=== PATIENT | female | born 1995 | race Caucasian/White ===

== ENCOUNTER 2021-05-14 16:34 | Emergency (ER) | payer MEDICAID ==
[2021-05-14] MEDS ORDERED: Ondansetron 4 MG Tab.DIS PO ONE (16:35)
[2021-05-14] MEDS ORDERED: Ondansetron 4 MG Tab.DIS PO STA (17:06)
[2021-05-14] MEDS ORDERED: levETIRAcetam 500 MG Tab PO STA (17:06)
[2021-05-14] MEDS ORDERED: Acetaminophen/HYDROcodone 325-5 MG Tab PO STA (17:06)
--- NOTE | 2021-05-14 17:44 | EDM.PDOC ---
ED HPI GENERAL MEDICAL PROBLEM - General Chief Complaint: Head Injury Stated Complaint: SEIZURE Time Seen by Provider: 05/14/21 16:40 Source of Information: Reports: Patient, Family History Limitations: Reports: No Limitations - History of Present Illness INITIAL COMMENTS - FREE TEXT/NARRATIVE: Patient presented to the ED because of head injury. She has a history of seizure and missed taking her keppra 500 mg this morning. She apparently had generalized body jerking then fell and hit her head on the floor. There is brief LOC, c/o neck pain and headache. - Related Data Allergies Allergy/AdvReac Type Severity Reaction Status Date / Time Penicillins Allergy Hives Verified 05/14/21 16:52 Home Meds: Home Meds ARIPiprazole [Abilify] 40 mg PO DAILY 05/14/21 [History] FLUoxetine [PROzac] 10 mg PO DAILY 05/14/21 [History] Mirtazapine [Remeron] 45 mg PO DAILY 05/14/21 [History] levETIRAcetam [Keppra] 500 mg PO BID 05/14/21 [History] Past Medical History Neurological History: Reports: Seizure, Other (See Below) Other Neuro History: Epilepsy Psychiatric History: Reports: Bipolar Social & Family History - Family History Family Medical History: No Pertinent Family History - Tobacco Use Tobacco Use Status *Q: Current Every Day Tobacco User Years of Tobacco use: 3 Packs/Tins Daily: 1 - Caffeine Use Caffeine Use: Reports: Coffee, Soda - Recreational Drug Use Recreational Drug Use: No ED ROS GENERAL - Review of Systems Review Of Systems: See Below Constitutional: Reports: No Symptoms HEENT: Reports: No Symptoms Respiratory: Reports: No Symptoms Cardiovascular: Reports: No Symptoms Endocrine: Reports: No Symptoms GI/Abdominal: Reports: No Symptoms : Reports: No Symptoms Musculoskeletal: Reports: No Symptoms Skin: Reports: No Symptoms Neurological: Reports: Headache, Seizure Psychiatric: Reports: No Symptoms Hematologic/Lymphatic: Reports: No Symptoms Immunologic: Reports: No Symptoms ED EXAM, HEAD INJURY - Physical Exam Exam: See Below Exam Limited By: No Limitations General Appearance: Alert, No Apparent Distress Head: Atraumatic, Normocephalic Nexus Criteria: Posterior, Midline Cervical Tenderness Ears: Normal External Exam, Normal Canal, Hearing Grossly Normal, Normal TMs Nose: Normal Inspection, Normal Mucousa, No Blood Throat/Mouth: Normal Inspection, Normal Lips, Normal Teeth, Normal Gums, Normal Oropharynx, Normal Voice Neck: Non-Tender, Full Range of Motion, Normal Alignment Respiratory: No Respiratory Distress, Lungs Clear, Normal Breath Sounds, No Accessory Muscle Use, Chest Non-Tender Cardiovascular: Normal Peripheral Pulses, Regular Rate, Rhythm, No Edema GI/Abdominal Exam: Normal Bowel Sounds, Soft, Non-Tender, No Organomegaly, No Distention, No Abnormal Bruit Back Exam: Normal Inspection, Full Range of Motion Extremities: Normal Inspection, Normal Range of Motion, Non-Tender Neurologic: casing crew II-XII nml As Tested, No Motor/Sensory Deficits, Alert, Normal Mood/Affect, Oriented x 3 Course - Vital Signs Text/Narrative:: Lab/Head Ct result was reviewed and discussed with patient and her friend Tylenol 1000 mg PO x1 Ibuprofen 800 mg PO x1 Keppra 1000 mg PO x1 Zofran ODT 4 mg PO x1 Last Recorded V/S: Last Vital Signs Temp 36.7 C 05/14/21 16:37 Pulse 114 H 05/14/21 16:37 Resp 18 05/14/21 16:37 BP 124/81 05/14/21 16:37 Pulse Ox 98 05/14/21 16:37 - Orders/Labs/Meds Orders: Active Orders 24 hr Category Date Time Status LEVETIRACETAM (KEPPRA), S Routine Lab 05/14/21 17:10 Received Labs: Laboratory Tests 05/14/21 05/14/21 Range/Units 17:10 17:10 WBC 14.3 H (3.0-10.3) x10-3/uL RBC 4.81 (3.60-5.20) x10(6)uL Hgb 13.4 (11.4-15.5) g/dL Hct 41.8 (34.2-48.2) % MCV 86.8 (76.7-100.5) fL MCH 27.8 (23.9-33.9) pg MCHC 32.1 (31.9-34.8) g/dL RDW 17.6 H (12.3-16.5) % Plt Count 286 (151-488) x10(3)uL MPV 8.0 (7.1-12.4) fL Neut % (Auto) 75.7 (30.8-76.2) % Lymph % (Auto) 18.8 (18.4-52.1) % [place] % (Auto) 4.3 L (4.4-15.7) % Eos % (Auto) 0.6 (0.6-8.1) % Baso % (Auto) 0.6 (0.2-1.5) % Neut # (Auto) 10.8 H (1.5-6.3) x10-3/uL Lymph # (Auto) 2.7 (1.0-4.4) x10-3/uL [place] # (Auto) 0.6 (0.3-1.0) x10-3/uL Eos # (Auto) 0.1 (0.0-0.8) x10-3/uL Baso # (Auto) 0.1 (0.0-0.1) x10-3/uL Sodium 140 (135-145) mmol/L Potassium 4.0 (3.5-5.3) mmol/L Chloride 104 (100-110) mmol/L Carbon Dioxide 24 (21-32) mmol/L BUN 14 (7-18) mg/dL Creatinine 1.0 (0.55-1.02) mg/dL Est Cr Clr Drug Dosing 73.62 mL/min Estimated GFR (MDRD) > 60 (>60) BUN/Creatinine Ratio 14.0 (9-20) Glucose 94 (80-116) mg/dL Calcium 9.0 (8.6-10.2) mg/dL Meds: Medications Discontinued Medications Generic Name Dose Route Start Last Admin Trade Name Freq PRN Reason Stop Dose Admin Hydrocodone Bitart/Acetaminophen 2 tab 05/14/21 17:06 05/14/21 17:15 Acetaminophen/Hydrocodone 325-5 Mg Tab PO 05/14/21 17:07 2 tab NOW STA Administration Levetiracetam 1,000 mg 05/14/21 17:06 05/14/21 17:19 Levetiracetam 500 Mg Tab PO 05/14/21 17:07 1,000 mg NOW STA Administration Ondansetron HCl 4 mg 05/14/21 17:06 05/14/21 17:15 Ondansetron 4 Mg Tab.Dis PO 05/14/21 17:07 4 mg NOW STA Administration Ondansetron HCl 16 mg 05/14/21 16:35 Ondansetron 4 Mg Tab.Dis PO 05/14/21 16:36 .STK-MED ONE Departure - Departure Time of Disposition: 17:50 Disposition: Home, Self-Care 01 Condition: Good Clinical Impression: Seizure, Closed head injury - Discharge Information Instructions: Head Injury, Adult, [id number], Seizure, Adult, [id number] Referrals: Erika Taylor NP [Primary Care Provider] - Forms: ED Department Discharge Additional Instructions: Please read discharge instructions on closed head injury and seizure Never miss a dose of your keppra because it will cause yo to have seizure Take your Keppra at the same time every day Take Ibuprofen 800 mg with tylenol 1000 mg every 8 hours as needed for headache Schedule an appointment to see a Neurologist at [facility] for a follow up visit Sepsis Event Note (ED) - Evaluation Sepsis Screening Result: No Definite Risk - My Orders Last 24 Hours: My Active Orders 05/14/21 17:10 LEVETIRACETAM (KEPPRA), S Routine - Assessment/Plan Last 24 Hours: My Active Orders 05/14/21 17:10 LEVETIRACETAM (KEPPRA), S Routine
--- NOTE | 2021-05-14 18:13 | CT ---
CT HEAD WITHOUT CONTRAST INDICATION: Head injury - epileptic seizure and fall at around 3:50 p.m. Spiral 3.75 mm axial sections were obtained through the brain without contrast with axial, sagittal and coronal reconstructions 05/14/21 - no comparisons. Total exam DLP was 1348.07 mGy/cm. The visualized paranasal sinuses and mastoid air cells appear normally aerated. No cranial fracture site was identified. No scalp hematoma was seen. No shift of midline structures, ventricular abnormalities or abnormal areas of density were identified - no bleeding site or hematoma was seen. Garvin/white matter interface appeared normal. IMPRESSION: Normal CT brain without contrast. Report was called to Dr. Awan at 1720 hours 05/14/21. [facility]
== END 2021-05-14 18:01 | disposition home or self-care (01) ==
LOC: FB.ED 16:34
DX: S09.90XA Unspecified injury of head, initial encounter (principal); R56.9 Unspecified convulsions; Z79.899 Other long term (current) drug therapy; Z72.0 Tobacco use; Z88.0 Allergy status to penicillin; W18.09XA Striking against other object with subsequent fall, initial encounter
CPT/HCPCS: 36415; 70450; 80048; 80177; 85025; 99285; A9270

== ENCOUNTER 2021-05-17 15:32 | Emergency (ER) | payer MEDICAID ==
[2021-05-17] MEDS ORDERED: Ketorolac 30 MG/ML SDV IVPUSH ONE (15:52)
[2021-05-17] MEDS ORDERED: Sodium Chloride 0.9% 1,000 ML IV ONE (15:52)
[2021-05-17] MEDS ORDERED: Ondansetron 4 MG/2 ML SDV IVPUSH ONE (15:52)
--- NOTE | 2021-05-17 16:21 | EDM.PDOC ---
ED HPI GENERAL MEDICAL PROBLEM - General Stated Complaint: BACK PAIN Time Seen by Provider: 05/17/21 15:35 Source of Information: Reports: Patient History Limitations: Reports: No Limitations - History of Present Illness INITIAL COMMENTS - FREE TEXT/NARRATIVE: c/o L flank pain x 3.5h pt scheduled to work at [employer] at 1p, at 12:30p she had sharp pain in her L flank that radiated to her shoulder inc'd pain with movement, dec'd pain with hot bath and lying on R side has had back pain but not like this took APAP 500 mg 2 tabs which helped a little has had some mild nausea and lightheaded for past 2d, was given Zofran when in the ED 3d ago with a szs and took a Zofran at noon, which helped some with the N altho did not eat solid food today, drank some water and OJ today has had c/s x 3, had an incidental enlarged spleen noted on first CT, one wk after 1st c/s she had E coli sepsis and had her GB removed, she later had a ruptured appendix from [facility] has 3 children living their father in [place], moved here 1m ago to live with fran whom she met online PMH: bipolar, inc'd BMI, szs DO PCP Michael Taylor who referred her to neuro, has apt with neuro in [place] on 06/[address] Schmidt in walk-in for heavy menses, pt reports a transvag u/s was done today at the [facility] BMP neg 3d ago, CBC 3d ago with WBC 14k (? postictal) no freq, no dysuria [facility] sent over clinic note from Dr Schmidt on 05-09, c/o 2d of excessive vag bleeding,he order pelvic u/s and CBC and referred pt to half backer PSH: in [address] Schmidt "she had a surgery to remove tumors form her uterus" WBC 13.4, hgb 13.9, plt 313, segs 72% on 05-09 urine HCG neg on 05-09 TSH and prolactin wnl on 05-09 pelvic US on 05-17 (today) is neg, uterus and ovaries and adnexa all wnl, impression: "no sonographic findings to account for DUB" Left Flank Pain Score (Numeric/FACES): 9 - Related Data Allergies Allergy/AdvReac Type Severity Reaction Status Date / Time Penicillins Allergy Hives Verified 05/17/21 17:30 Home Meds: Home Meds ARIPiprazole [Abilify] 40 mg PO DAILY 05/14/21 [History] FLUoxetine [PROzac] 10 mg PO DAILY 05/14/21 [History] Mirtazapine [Remeron] 45 mg PO DAILY 05/14/21 [History] levETIRAcetam [Keppra] 500 mg PO BID 05/14/21 [History] Past Medical History Neurological History: Reports: Seizure, Other (See Below) Other Neuro History: Epilepsy Psychiatric History: Reports: Bipolar Social & Family History - Family History Family Medical History: No Pertinent Family History - Caffeine Use Caffeine Use: Reports: Coffee, Soda ED ROS GENERAL - Review of Systems Review Of Systems: See Below Constitutional: Reports: No Symptoms HEENT: Reports: No Symptoms Respiratory: Reports: No Symptoms Cardiovascular: Reports: No Symptoms Endocrine: Reports: No Symptoms GI/Abdominal: Reports: No Symptoms, Nausea. Denies: Vomiting : Reports: No Symptoms Musculoskeletal: Reports: Back Pain Skin: Reports: No Symptoms Neurological: Reports: Dizziness. Denies: Headache Psychiatric: Reports: No Symptoms Hematologic/Lymphatic: Reports: No Symptoms Immunologic: Reports: No Symptoms ED EXAM, GI/ABD - Physical Exam Exam: See Below Exam Limited By: No Limitations General Appearance: Alert, WD/WN, Other (marked inc'd BMI, lying on R side, holding hand at L flank, sits easily) Eyes: Bilateral: EOMI Ears: Hearing Grossly Normal Nose: Normal Inspection Throat/Mouth: Normal Voice, No Airway Compromise Head: Atraumatic, Normocephalic Neck: Normal Inspection, Supple, Non-Tender, Full Range of Motion. No: Lymphadenopathy (R), Lymphadenopathy (L) Respiratory/Chest: No Respiratory Distress, Lungs Clear, Normal Breath Sounds, Chest Non-Tender Cardiovascular: Regular Rate, Rhythm, No Edema, No Gallop, No Murmur. No: Tachycardia, Systolic Murmur GI/Abdominal Exam: Normal Bowel Sounds, Soft, Non-Tender, No Distention. No: Splenomegaly Extremities: Normal Inspection, Normal Range of Motion, Non-Tender, No Pedal Edema Neurological: Alert, Oriented, CN II-XII Intact, Normal Cognition, No Motor/Sensory Deficits Psychiatric: Normal Affect, Normal Mood Skin Exam: Warm, Dry, Intact, Normal Color, No Rash Lymphatic: No Adenopathy Course - Vital Signs Last Recorded V/S: Last Vital Signs Temp 37.1 C 05/17/21 16:20 Pulse 102 H 05/17/21 16:20 Resp 18 05/17/21 16:20 BP 135/59 L 05/17/21 16:20 Pulse Ox 96 05/17/21 16:20 - Orders/Labs/Meds Orders: Active Orders 24 hr Category Date Time Status Abdomen Pelvis w Cont [CT] Stat Exams 05/17/21 16:44 Ordered Labs: Laboratory Tests 05/17/21 05/17/21 05/17/21 Range/Units 16:05 16:05 16:05 WBC 12.0 H (3.0-10.3) x10-3/uL RBC 4.50 (3.60-5.20) x10(6)uL Hgb 12.5 (11.4-15.5) g/dL Hct 38.7 (34.2-48.2) % MCV 86.0 (76.7-100.5) fL MCH 27.7 (23.9-33.9) pg MCHC 32.2 (31.9-34.8) g/dL RDW 17.9 H (12.3-16.5) % Plt Count 273 (151-488) x10(3)uL MPV 7.9 (7.1-12.4) fL Neut % (Auto) 72.5 (30.8-76.2) % Lymph % (Auto) 21.3 (18.4-52.1) % [place] % (Auto) 4.2 L (4.4-15.7) % Eos % (Auto) 0.9 (0.6-8.1) % Baso % (Auto) 1.1 (0.2-1.5) % Neut # (Auto) 8.7 H (1.5-6.3) x10-3/uL Lymph # (Auto) 2.6 (1.0-4.4) x10-3/uL [place] # (Auto) 0.5 (0.3-1.0) x10-3/uL Eos # (Auto) 0.1 (0.0-0.8) x10-3/uL Baso # (Auto) 0.1 (0.0-0.1) x10-3/uL Sodium 142 (135-145) mmol/L Potassium 3.5 (3.5-5.3) mmol/L Chloride 106 (100-110) mmol/L Carbon Dioxide 26 (21-32) mmol/L BUN 8 (7-18) mg/dL Creatinine 1.0 (0.55-1.02) mg/dL Est Cr Clr Drug Dosing TNP Estimated GFR (MDRD) > 60 (>60) BUN/Creatinine Ratio 8.0 L (9-20) Glucose 122 H (80-116) mg/dL Calcium 8.3 L (8.6-10.2) mg/dL Total Bilirubin 0.2 (0.1-1.3) mg/dL AST 21 (5-25) IU/L ALT 31 (12-36) U/L Alkaline Phosphatase 118 H (56-112) IU/L C-Reactive Protein 5.3 H* (0.5-0.9) mg/dL Total Protein 6.7 (6.0-8.0) g/dL Albumin 2.8 L (3.5-5.2) g/dL Globulin 3.9 g/dL Albumin/Globulin Ratio 0.7 Lipase 68 L (73-393) U/L Urine Color (YELLOW) Urine Appearance (CLEAR) Urine pH (5.0-6.5) Ur Specific Johnson (1.010-1.025) Urine Protein (NEGATIVE) mg/dL Urine Glucose (UA) (NORMAL) mg/dL Urine Ketones (NEGATIVE) mg/dL Urine Occult Blood (NEGATIVE) Urine Nitrite (NEGATIVE) Urine Bilirubin (NEGATIVE) Urine Urobilinogen (NEGATIVE) mg/dL Ur Leukocyte Esterase (NEGATIVE) Urine RBC (0-5) Urine WBC (0-5) Ur Squamous Epith Cells (NS,R,O) Urine Bacteria (NS) 05/17/21 Range/Units 17:20 WBC (3.0-10.3) x10-3/uL RBC (3.60-5.20) x10(6)uL Hgb (11.4-15.5) g/dL Hct (34.2-48.2) % MCV (76.7-100.5) fL MCH (23.9-33.9) pg MCHC (31.9-34.8) g/dL RDW (12.3-16.5) % Plt Count (151-488) x10(3)uL MPV (7.1-12.4) fL Neut % (Auto) (30.8-76.2) % Lymph % (Auto) (18.4-52.1) % [place] % (Auto) (4.4-15.7) % Eos % (Auto) (0.6-8.1) % Baso % (Auto) (0.2-1.5) % Neut # (Auto) (1.5-6.3) x10-3/uL Lymph # (Auto) (1.0-4.4) x10-3/uL [place] # (Auto) (0.3-1.0) x10-3/uL Eos # (Auto) (0.0-0.8) x10-3/uL Baso # (Auto) (0.0-0.1) x10-3/uL Sodium (135-145) mmol/L Potassium (3.5-5.3) mmol/L Chloride (100-110) mmol/L Carbon Dioxide (21-32) mmol/L BUN (7-18) mg/dL Creatinine (0.55-1.02) mg/dL Est Cr Clr Drug Dosing Estimated GFR (MDRD) (>60) BUN/Creatinine Ratio (9-20) Glucose (80-116) mg/dL Calcium (8.6-10.2) mg/dL Total Bilirubin (0.1-1.3) mg/dL AST (5-25) IU/L ALT (12-36) U/L Alkaline Phosphatase (56-112) IU/L C-Reactive Protein (0.5-0.9) mg/dL Total Protein (6.0-8.0) g/dL Albumin (3.5-5.2) g/dL Globulin g/dL Albumin/Globulin Ratio Lipase (73-393) U/L Urine Color Yellow (YELLOW) Urine Appearance Clear (CLEAR) Urine pH 6.0 (5.0-6.5) Ur Specific Johnson 1.015 (1.010-1.025) Urine Protein Negative (NEGATIVE) mg/dL Urine Glucose (UA) Normal (NORMAL) mg/dL Urine Ketones Negative (NEGATIVE) mg/dL Urine Occult Blood Negative (NEGATIVE) Urine Nitrite Negative (NEGATIVE) Urine Bilirubin Negative (NEGATIVE) Urine Urobilinogen 1 H (NEGATIVE) mg/dL Ur Leukocyte Esterase Negative (NEGATIVE) Urine RBC Not seen (0-5) Urine WBC 0-5 (0-5) Ur Squamous Epith Cells Few H (NS,R,O) Urine Bacteria Few H (NS) Meds: Medications Discontinued Medications Generic Name Dose Route Start Last Admin Trade Name Freq PRN Reason Stop Dose Admin Diphenhydramine HCl 50 mg 05/17/21 17:29 05/17/21 17:35 Diphenhydramine 50 Mg/Ml Sdv IVPUSH 05/17/21 17:30 50 mg ONETIME ONE Administration Sodium Chloride 1,000 mls @ 999 mls/hr 05/17/21 15:52 05/17/21 16:30 Normal Saline IV 05/17/21 16:52 999 mls/hr .BOLUS ONE Administration Iopamidol 150 ml 05/17/21 16:56 05/17/21 17:32 Iopamidol 755 Mg/Ml 150 Ml Bottle IV 05/17/21 16:57 150 ml ONETIME ONE Administration Ketorolac Tromethamine 30 mg 05/17/21 15:52 05/17/21 16:28 Ketorolac 30 Mg/Ml Sdv IVPUSH 05/17/21 15:53 30 mg ONETIME ONE Administration Ondansetron HCl 4 mg 05/17/21 15:52 05/17/21 16:29 Ondansetron 4 Mg/2 Ml Sdv IVPUSH 05/17/21 15:53 4 mg ONETIME ONE Administration - Re-Assessments/Exams Free Text/Narrative Re-Assessment/Exam: 05/17/21 16:23 nontoxic, not acutely ill, appears mildly uncomfortable has had inc'd WBC 3d ago and 8d ago, so WBC 13-14k is likely baseline spine appears nontender as does the lower back and SI joint, doubt spleen issue, renal colic is a consideration, will check urine LMP one wk ago 05/17/21 17:43 CRP inc'd for unclear reason, no comparison u/a neg for ketones, neg for RBC, neg for infection MPMP shows pt given clonazepam 0.5 mg #30 tabs on 05-03-21 05/17/21 19:05 CT abd/pelvis with IV contrast with no acute findings, spleen 17.8 cm length, liver 26.8 cm length no inc'd stool burden pt resting and more comfortable at time of d/c did seem to respond well to diphenhydramine 50 mg IV, will continue cause of CRP 5.3 is unknown, no clinical evidence of infection, u/a neg, CT neg for colitis/diverticulitis pt may have connective tissue disorder given her mild inc'd WBC (lower today) and inc'd CRP, may need a rheumatology evaluation at some juncture, cheeks are seun c/w sun exposure, not typical appearance for lupus Departure - Departure Time of Disposition: 19:02 Disposition: Home, Self-Care 01 Condition: Good Clinical Impression: Abdominal cramps, Hepatic steatosis, Hepatosplenomegaly, Elevated C-reactive protein (CRP) - Discharge Information *PRESCRIPTION DRUG MONITORING PROGRAM REVIEWED*: Yes *COPY OF PRESCRIPTION DRUG MONITORING REPORT IN PATIENT RYANN: No Instructions: Abdominal Pain, Adult Additional Instructions: For pain and inflammation and cramping, take ibuprofen 200 mg 3 tabs, acetaminophen 500 mg 2 tabs and diphenhydramine 25 mg 1 tab 4 times a day (meals and bedtime) for 2 days, longer if needed. Use heat in tub or shower for 10 minutes every 2 hours while awake as needed. Maintain fluids. Avoid fatty foods. See your PCP next week. Sepsis Event Note (ED) - Focused Exam Vital Signs: Vital Signs Temp Pulse Resp BP Pulse Ox 05/17/21 16:20 37.1 C 102 H 18 135/59 L 96 - My Orders Last 24 Hours: My Active Orders 05/17/21 16:44 Abdomen Pelvis w Cont [CT] Stat - Assessment/Plan Last 24 Hours: My Active Orders 05/17/21 16:44 Abdomen Pelvis w Cont [CT] Stat
[2021-05-17] MEDS ORDERED: Iopamidol 755 MG/ML 150 ML Bottle IV ONE (16:56)
[2021-05-17] MEDS ORDERED: diphenhydrAMINE 50 MG/ML SDV IVPUSH ONE (17:29)
== END 2021-05-17 19:15 | disposition home or self-care (01) ==
LOC: FB.ED 15:32
DX: K83.1 Obstruction of bile duct (principal); R16.2 Hepatomegaly with splenomegaly, not elsewhere classified; R79.82 Elevated C-reactive protein (CRP); Z88.0 Allergy status to penicillin; Z79.899 Other long term (current) drug therapy
CPT/HCPCS: 36415; 74177; 80053; 81001; 83690; 85025; 86140; 96374; 96375; 99284; J1200; J1885; J2405; J7030; Q9967

== ENCOUNTER 2021-06-04 19:27 | Emergency (ER) | payer MEDICAID ==
[2021-06-04] MEDS ORDERED: Aspirin 81 MG Tab.Chew PO ONE (19:53)
--- NOTE | 2021-06-04 20:34 | EDM.PDOC ---
ED HPI GENERAL MEDICAL PROBLEM - General Chief Complaint: Chest Pain Stated Complaint: CHEST PAIN Time Seen by Provider: 06/04/21 19:40 Source of Information: Reports: Patient History Limitations: Reports: No Limitations - History of Present Illness INITIAL COMMENTS - FREE TEXT/NARRATIVE: Patient presented to the ED because of left sided chest pain which started at 6:45 pm tonight. The pain is sharp,7/10 with associated dyspnea. There is no nausea, vomiting or diaphoresis. She has been coughing lately due to her asthma and is more short of breath more than usual. Left Upper Chest Pain Score (Numeric/FACES): 9 - Related Data Allergies Allergy/AdvReac Type Severity Reaction Status Date / Time Penicillins Allergy Hives Verified 05/17/21 17:30 Home Meds: Home Meds ARIPiprazole [Abilify] 40 mg PO DAILY 05/14/21 [History] FLUoxetine [PROzac] 10 mg PO DAILY 05/14/21 [History] Mirtazapine [Remeron] 45 mg PO DAILY 05/14/21 [History] levETIRAcetam [Keppra] 500 mg PO BID 05/14/21 [History] predniSONE [Prednisone] 40 mg PO DAILY #10 tablet 06/04/21 [Rx] Past Medical History Respiratory History: Reports: Asthma, Other (See Below) Other Respiratory History: spot on her lung (? which side) per CT scan 2 months ago [employer] History: Reports: Neurological History: Reports: Seizure, Other (See Below) Other Neuro History: Epilepsy Psychiatric History: Reports: Bipolar Other Endocrine/Metabolic History: enlarged liver/spleen - Infectious Disease History Infectious Disease History: Reports: None - Past Surgical History GI Surgical History: Reports: Appendectomy, Cholecystectomy Social & Family History - Family History Family Medical History: No Pertinent Family History - Tobacco Use Tobacco Use Status *Q: Current Every Day Tobacco User Years of Tobacco use: 5 Packs/Tins Daily: 0.5 - Caffeine Use Caffeine Use: Reports: Coffee, Soda - Recreational Drug Use Recreational Drug Use: No ED ROS GENERAL - Review of Systems Review Of Systems: See Below Constitutional: Reports: No Symptoms HEENT: Reports: No Symptoms Respiratory: Reports: Shortness of Breath, Pleuritic Chest Pain, Cough Cardiovascular: Reports: Chest Pain Endocrine: Reports: No Symptoms GI/Abdominal: Reports: No Symptoms : Reports: No Symptoms Musculoskeletal: Reports: No Symptoms Skin: Reports: No Symptoms Neurological: Reports: No Symptoms ED EXAM, GENERAL - Physical Exam Exam: See Below Exam Limited By: No Limitations General Appearance: Alert, No Apparent Distress Eye Exam: Bilateral Eye: PERRL Ears: Normal External Exam, Normal Canal Nose: Normal Inspection, Normal Mucosa, No Blood Throat/Mouth: Normal Inspection, Normal Lips Head: Atraumatic, Normocephalic Neck: Normal Inspection, Supple, Non-Tender Respiratory/Chest: No Respiratory Distress, Lungs Clear, Normal Breath Sounds, No Accessory Muscle Use, Chest Non-Tender Cardiovascular: Normal Peripheral Pulses, Regular Rate, Rhythm, No Edema, No JVD, No Murmur GI/Abdominal: Normal Bowel Sounds, Soft, Non-Tender Back Exam: Normal Inspection, Full Range of Motion Extremities: Normal Inspection, Normal Range of Motion, Non-Tender Neurological: Alert, Oriented, CN II-XII Intact, Normal Cognition, Normal Gait Psychiatric: Normal Affect, Normal Mood Skin Exam: Warm #1 Interpretation EKG Date: 06/04/21 Time: 19:50 Rhythm: Other (Sinus Tach) Rate (Beats/Min): 108 [place]: Normal P-Wave: Present QRS: Normal ST-T: Normal QT: Normal KS/PQ Interval: 117 Comparison: NA - No Prior EKG EKG Interpretation Comments: Sinus Tach Course - Vital Signs Text/Narrative:: Lab/EKG/CXR result was reviewed and discussed with patient ASA 324 mg PO x1 Duoneb x 1 Solumedrol 125 mg IM x1 Last Recorded V/S: Last Vital Signs Temp 36.8 C 06/04/21 19:32 Pulse 116 H 06/04/21 19:32 Resp 18 06/04/21 19:32 BP 144/86 H 06/04/21 19:32 Pulse Ox 97 06/04/21 19:32 - Orders/Labs/Meds Orders: Active Orders 24 hr Category Date Time Status CXR [Chest 2V] [CR] Stat Exams 06/04/21 19:52 Taken CBC WITH MANUAL DIFF [HEME] Stat Lab 06/04/21 20:10 Results D-DIMER QUANTITATIVE [COAG] Stat Lab 06/04/21 20:10 Received EKG 12 Lead [EK] Routine Ther 06/04/21 19:52 Ordered Labs: Laboratory Tests 06/04/21 06/04/21 06/04/21 Range/Units 20:10 20:10 20:10 WBC 13.8 H (3.0-10.3) x10-3/uL RBC 4.62 (3.60-5.20) x10(6)uL Hgb 12.7 (11.4-15.5) g/dL Hct 39.2 (34.2-48.2) % MCV 84.9 (76.7-100.5) fL MCH 27.6 (23.9-33.9) pg MCHC 32.4 (31.9-34.8) g/dL RDW 17.1 H (12.3-16.5) % Plt Count 294 (151-488) x10(3)uL MPV 8.2 (7.1-12.4) fL Sodium 141 (135-145) mmol/L Potassium 3.6 (3.5-5.3) mmol/L Chloride 106 (100-110) mmol/L Carbon Dioxide 23 (21-32) mmol/L BUN 11 (7-18) mg/dL Creatinine 0.9 (0.55-1.02) mg/dL Est Cr Clr Drug Dosing TNP Estimated GFR (MDRD) > 60 (>60) BUN/Creatinine Ratio 12.2 (9-20) Glucose 121 H (80-116) mg/dL Calcium 9.0 (8.6-10.2) mg/dL Total Bilirubin 0.2 (0.1-1.3) mg/dL AST 11 D (5-25) IU/L ALT 20 D (12-36) U/L Alkaline Phosphatase 107 (56-112) IU/L Troponin I < 4.0 L (4.0-60.3) pg/mL Total Protein 7.2 (6.0-8.0) g/dL Albumin 3.0 L (3.5-5.2) g/dL Globulin 4.2 g/dL Albumin/Globulin Ratio 0.7 Meds: Medications Discontinued Medications Generic Name Dose Route Start Last Admin Trade Name Freq PRN Reason Stop Dose Admin Aspirin 324 mg 06/04/21 19:53 06/04/21 20:02 Aspirin 81 Mg Tab.Chew PO 06/04/21 19:54 324 mg ONETIME ONE Administration Departure - Departure Time of Disposition: 21:20 Disposition: Home, Self-Care 01 Condition: Good Clinical Impression: Asthma exacerbation, Atypical chest pain Prescriptions: predniSONE [Prednisone] 40 mg PO DAILY #10 tablet Instructions: Nonspecific Chest Pain, Adult, [id number], Asthma Attack Referrals: Erika Taylor FIELD STAFF MANAGER [Primary Care Provider] - Forms: ED Department Discharge Additional Instructions: Please read discharge instructions on atypical chest pain and asthma attack Take prednisone 40 mg daily starting tomorrow morning Use your inhaler as directed Follow up as needed Sepsis Event Note (ED) - Evaluation Sepsis Screening Result: No Definite Risk - Focused Exam Vital Signs: Vital Signs Temp Pulse Resp BP Pulse Ox 06/04/21 19:32 36.8 C 116 H 18 144/86 H 97 - My Orders Last 24 Hours: My Active Orders 06/04/21 19:52 CXR [Chest 2V] [CR] Stat EKG 12 Lead [EK] Routine 06/04/21 20:10 CBC WITH MANUAL DIFF [HEME] Stat D-DIMER QUANTITATIVE [COAG] Stat - Assessment/Plan Last 24 Hours: My Active Orders 06/04/21 19:52 CXR [Chest 2V] [CR] Stat EKG 12 Lead [EK] Routine 06/04/21 20:10 CBC WITH MANUAL DIFF [HEME] Stat D-DIMER QUANTITATIVE [COAG] Stat
[2021-06-04] MEDS ORDERED: methylPREDNISolone Sodium Succinate 125 MG/2 ML SDV IM STA (20:48)
[2021-06-04] MEDS ORDERED: Albuterol/Ipratropium 3.0-0.5 MG/3 ML Neb Soln NEB STA (20:48)
--- NOTE | 2021-06-05 10:12 | CR ---
INDICATION: Chest pain, cough. CHEST, TWO VIEWS: PA and lateral views of the chest were obtained 06/04/21 - no comparisons. The heart and mediastinum are unremarkable except for question of very minimal left ventricular prominence on the lateral view. A minimal dextroscoliosis of the upper middle thoracic spine is noted. Overlying EKG leads are noted. Interstitial markings are heavy which may be on the basis of fibrosis or active interstitial disease. Additionally, severe bronchial wall cuffing is noted in the lower lung marrero likely on the basis of active peribronchial disease in this age group - correlate clinically. Exogenous obesity is noted. IMPRESSION: 1. Interstitial markings are prominent with bronchial wall cuffing fairly severe in the lower lung marre[place] likely on the basis of active peribronchial disease. 2. Mild scoliosis. 3. Exogenous obesity. MTDD
== END 2021-06-04 21:08 | disposition home or self-care (01) ==
LOC: FB.ED 19:27
DX: J45.901 Unspecified asthma with (acute) exacerbation (principal); R00.0 Tachycardia, unspecified; Z72.0 Tobacco use; Z88.0 Allergy status to penicillin; Z79.899 Other long term (current) drug therapy
CPT/HCPCS: 36415; 71046; 80053; 84484; 85025; 85379; 93005; 94640; 96372; 99285; A9270; J2930; J7620-GY